=== PATIENT | male | born 1950 | race Caucasian/White ===

== ENCOUNTER → 2018-09-11 | Day surgery (SDC) | payer MEDICARE ==
[~2018-09-11] VITALS: Ht 172.7 cm; Wt 104.3 kg
[~2018-09-11] MED LIST: AMLODIPINE BESY10 MG PO; ASPIRIN ADULT L81 M1 PO; LISINOPRIL20 MG PO; METFORMIN HYDR500 MG PO; ROSUVASTATIN CA10 MG PO
[2018-09-11 07:10] VITALS: BP 143/92
[2018-09-11 08:40] VITALS: BP 108/71
[2018-09-11 08:55] VITALS: BP 101/67
[2018-09-11 09:10] VITALS: BP 114/60
== END | disposition home or self-care (01) ==
LOC: SDC 09-06 08:45
DX: Z12.11 Encounter for screening for malignant neoplasm of colon (principal); K57.30 Diverticulosis of large intestine without perforation or abscess without bleeding; K64.8 Other hemorrhoids; E11.9 Type 2 diabetes mellitus without complications; I10 Essential (primary) hypertension; E78.5 Hyperlipidemia, unspecified; E66.9 Obesity, unspecified; Z68.43 Body mass index [BMI] 50.0-59.9, adult; Z98.890 Other specified postprocedural states; Z79.82 Long term (current) use of aspirin; Z79.899 Other long term (current) drug therapy; Z88.0 Allergy status to penicillin; Z80.1 Family history of malignant neoplasm of trachea, bronchus and lung; Z80.3 Family history of malignant neoplasm of breast
CPT/HCPCS: 00812; G0105